=== PATIENT | male | born 2000 | race Caucasian/White ===

== ENCOUNTER 2024-05-24 06:50 | Emergency (ER) | payer MEDICAID, SELFPAY ==
[2024-05-24 06:55] VITALS: BP 128/74; BP 128/76; PULSE 73; PULSE 74; RESP 18; TEMP 36.4; O2SAT 98; O2SAT 99; BMI 20.1
--- NOTE | 2024-05-24 07:24 | ED_ITS ---
HPI - Seizure General Chief Complaint: Seizure Stated Complaint: Unwit sz,hx sz,postictal,alert, disorient&confused Time Seen by Provider: 05/24/24 07:15 Source: patient, family (Mother) and EMS Mode of arrival: EMS Limitations: no limitations History of Present Illness ED Provider: DR. Harris HPI Narrative: 24-year-old male known history of seizure patient used to take Keppra 500 mg b.i.d. stop taking Keppra for more than month, has not seen PCP for a time. Patient was instructed to take his seizure medication, patient had a witnessed seizure while he was sleeping in bed today no fall, no injury, patient has no complaints at the moment. Related Data Previous Rx's ?Medication ?Instructions ?Recorded levetiracetam 500 mg tablet 500 mg PO BID #60 tabs 05/24/24 (Keppra) Allergies Allergy/AdvReac Type Severity Reaction Status Date / Time No Known Allergies Allergy Unverified 05/24/24 06:56 Review of Systems Review of Systems: All other systems are reviewed and are negative Constitutional: Reports as per HPI and Reports no additional constitutional complaints Eyes: Reports as per HPI and Reports no additional eye complaints Reports system reviewed and no additional complaints, except as documented Cardiovascular: Reports as per HPI and Reports no additional cardiovascular complaints Respiratory: Reports as per HPI and Reports no additional respiratory complaints Gastrointestinal: Reports as per HPI and Reports no additional gastrointestinal complaints Genitourinary: Reports no additional female genitourinary complaints Musculoskeletal: Reports no additional musculoskeletal complaints Skin/Breast: Reports system reviewed and no additional complaints, except as docu Psychiatric: Reports no additional psychiatric complaints Endocrine: Reports no additional endocrine complaints Hematologic/Lymphatic: Reports no additional hematologic/lymphatic complaints Allergic/Immunologic: Reports no additional allergic/immunologic complaints Reports system reviewed and no additional complaints, except as documented and Reports Abnormal speech present [facility] Social History Social History Alcohol intake: never Smoked in Last 30 Days: No Use of substances other than those prescribed or required for medical reasons: No Advance Directives: No Advance Directives Information Provided: No Physical Exam Vital Signs: Vital Signs: Last Vital Signs Temp 97.6 F 05/24/24 06:55 Pulse 73 05/24/24 06:55 Resp 18 05/24/24 06:55 BP 128/76 10/20/24 06:55 Pulse Ox 99 05/24/24 06:55 O2 Del Method Room Air 05/24/24 06:55 BMI result Body Mass Index 20.1 Vital signs have been reviewed and appear to be correct. Blood pressure elevated. Heart rate normal. Respiratory rate normal. Temperature normal. Oxygen saturation normal. Appearance: Alert. Oriented X3. No acute distress. Head: Normal external exam. Normocephalic. Atraumatic. No Stroud signs noted. No raccoon eyes noted Eyes: PERRLA. EOMI. Conjunctiva and sclera normal. Eyelids normal. ENT: TM's Normal. Pharynx normal. Uvula midline. Moist mucous membranes. No trismus noted. No drooling noted. No muffled voice noted. Neck: Normal inspection. Neck supple. FROM. No adenopathy. Thyroid Normal. No meningeal signs. No neck mass noted. CVS: Normal heart rate and rhythm. Heart sound normal. No murmurs noted. Pulses normal throughout. Respiratory: No respiratory distress. Painless inspiration. Breath sounds normal. No wheezes/rales/rhonchi noted. Chest nontender. No accessory muscle usage noted or decreased air movement noted. Abdomen: Soft and nontender. Bowel sounds normal in all 4 quadrants. No distention noted. No organomegaly noted. No visible injury noted. Back: No CVA tenderness. Full range of motion noted. Skin: Skin warm and dry. Normal skin color. Normal skin turgor. No rashes/lesions/lacerations noted. Extremities: No lower extremity edema. Extremities exhibit normal range of motion. Extremities nontender. Neuro: Oriented X 3. Cranial nerve exam: II-XII are grossly intact No motor deficit. No sensory deficit. Reflexes normal. Medical Decision Making Differential Diagnosis Differential Diagnoses: The differential diagnosis associated with the presentation includes (Seizure, head injury, extremities injuries, trunk injury.) Admission/Observation Consideration of admission/observation: Escalation of care including admission/observation considered Discharge Plan Discharge Clinical Impression: Seizure disorder Patient Disposition: Home, Self-Care Instructions: Recurrent Seizures in Adults (ED) Additional Instructions: Take your seizure medication. Prescriptions: New levetiracetam [Keppra] 500 mg tablet 500 mg PO BID Qty: 60 0RF Referrals: [facility] [Primary Care Provider] - Print Language: Hungarian
[2024-05-24] MEDS: levETIRAcetam 1,000 MG TABLET 1000 MG PO (07:33)
[2024-05-24 07:37] VITALS: BP 128/76; PULSE 73; RESP 18; TEMP 36.4; O2SAT 98
== END 2024-05-24 07:38 | disposition home or self-care (01) ==
PROVIDERS: Emergency Provider Emergency Medicine
DX: R56.9 Unspecified convulsions (principal); R41.0 Disorientation, unspecified; Z79.899 Other long term (current) drug therapy
CPT/HCPCS: 99284